=== PATIENT | female | born 1980 | race Caucasian/White ===

== ENCOUNTER 2019-03-15 06:01 | Day surgery (SDC) | payer OTHER ==
[2019-03-14 16:33] VITALS: BP 137/75
[2019-03-14 16:50] LABS: BASOPHILS % (AUTO) 0.3 % (0.0-5.0); EOSINOPHILS % (AUTO) 2.2 % (0.0-8.0); HEMATOCRIT 36.5 % (36-48); LYMPHOCYTES % (AUTO) 35.7 % (21.0-51.0); MEAN CORPUSCULAR HEMOGLOBIN 31.6 pg (27.0-33.0); MEAN CORPUSCULAR HGB CONC 33.6 g/dL (32.0-36.0); MEAN CORPUSCULAR VOLUME 93.9 fL (79-99); MONOCYTES % (AUTO) 6.4 % (3.0-13.0); NEUTROPHILS % (AUTO) 55.4 % (40.0-77.0); PLATELET COUNT (AUTO) 225 K/uL (130-400); RED BLOOD CELL COUNT(AUTO) 3.89 MIL/uL (4.00-5.50); RED CELL DISTRIBUTION WIDTH 14.3 % (11.0-15.5); WHITE BLOOD COUNT (AUTO) 6.5 K/uL (4.8-10.8)
[~2019-03-15] VITALS: Ht 177.8 cm; Wt 86.9 kg
[2019-03-15] VITALS (14 sets, daily range): BP systolic 109–124; BP diastolic 60–78
[~2019-03-15 06:01] MED LIST: CRAN1CAP5 PO; DILT-3 PO; FLUO-125 PO; MVIT PO
[2019-03-15] MEDS ORDERED: LIDOCAINE PF 2% 5ML ABBOJECT ONE (07:38)
[2019-03-15] MEDS ORDERED: ONDANSETRON HCL 4 MG/2 ML VIAL ONE (07:39)
[2019-03-15] MEDS ORDERED: MIDAZOLAM HCL 1 MG/ML 2ML VIAL ONE (07:40)
[2019-03-15] MEDS ORDERED: ACETIC ACID 0.25% 1,000 ML IRRIG.SOLN ONE (07:45)
[2019-03-15] MEDS ORDERED: STRONG IODINE SOLUTION 30ML BOTTLE ONE (07:45)
[2019-03-15] MEDS ORDERED: ROCURONIUM 10MG/1ML SYR 10 MG/ML ML ONE (07:46)
[2019-03-15] MEDS ORDERED: PROPOFOL 10 MG/ML 20ML VIAL IV ONE (07:46)
[2019-03-15] MEDS ORDERED: LACTATED RINGERS 1000ML 1,000 ML IV SCH (08:00)
[2019-03-15] MEDS ORDERED: GLYCOPYRROLATE 1 MG/5 ML SYRINGE ONE (08:14)
[2019-03-15] MEDS ORDERED: NEOSTIGMINE 5MG/5ML SYR IV ONE (08:14)
[2019-03-15] MEDS ORDERED: MEPERIDINE-PF 25 MG/ML SYG ONE (08:46)
[2019-03-15] MEDS ORDERED: KETOROLAC TROMETHAMINE 30MG/ML ONE (08:46)
[2019-03-15] MEDS ORDERED: MORPHINE SULFATE 4 MG/1ML SYG ONE (08:58)
[2019-03-15] MEDS ORDERED: FENTANYL CITRATE PF 50 MCG/1 ML 2ML VIAL ONE (09:13)
--- NOTE | 2019-03-15 09:35 | NUR ---
patient arrived patient brought to day patient via bed by BELINDA Stauffer from [facility]. PATIENT AAOX3, RESPIRATIONS UNLABORED, VITAL SIGNS STABLE. DENIES ANY PAIN AT THIS TIME. SIDERAILS UP X2, BED IN LOWEST POSITION, CALL VALENTE IN REACH.
--- NOTE | 2019-03-15 10:25 | NUR ---
DISCHARGED PATIENT AND PATIENT'S BOYFRIEND , CHRISTOFER TAMAYO, PROVIDED WITH DISCHARGE INSTRUCTIONS AND FOLLOW UP APPOINTMENT WITH DR PADILLA. BOTH VERBALIZED UNDERSTANDING. PROVIDED INSTRUCTIONS REGARDING SIGNS/SYMPTOMS TO MONITOR FOR AND WHAT TO REPORT TO DR PADILLA, VERBALIZED UNDERSTANDING. ALL QUESTIONS/CONCERNS ADDRESSED. PATIENT DISCHARGED AND TAKEN VIA WHEELCHAIR TO PRIVATE VEHICLE.
== END 2019-03-15 10:25 | disposition home or self-care (01) ==
LOC: DAH 06:01
PROVIDERS: ATTEND Obstetrics & Gynecology
DX: N85.00 Endometrial hyperplasia, unspecified (principal); N93.0 Postcoital and contact bleeding; N72 Inflammatory disease of cervix uteri; F14.11 Cocaine abuse, in remission; F12.21 Cannabis dependence, in remission; Z72.89 Other problems related to lifestyle; Z79.899 Other long term (current) drug therapy; Z98.51 Tubal ligation status; Z80.3 Family history of malignant neoplasm of breast; Z87.891 Personal history of nicotine dependence; Z83.3 Family history of diabetes mellitus
CPT/HCPCS: 36415; 57522; 58558; 85025; 86850; 86900; 86901; 88305; A4351; A4355; J1885; J2001; J2175; J2250; J2270; J2405; J2704; J2710; J3010; J3490; J7030; J7120 ×2